=== PATIENT | female | born 1975 | race Caucasian/White ===

== ENCOUNTER 2017-01-27 09:16 | Emergency (ER) | payer OTHER ==
[2017-01-27] MEDS ORDERED: IV NORMAL SALINE 1,000ML 1,000 ML IV ONE ×4 (09:45→12:00)
[2017-01-27] MEDS ORDERED: LIDO:MAALOX 1:1 20 ML SINGLE DOSE PO ONE (09:45)
[2017-01-27] MEDS ORDERED: ONDANSETRON PF 4 MG/2 ML VIAL. IV ONE (09:45)
--- NOTE | 2017-01-27 10:03 | ED.ADGEN ---
Past History Past Medical History: No Pertinent History Past Surgical History: No Surgical History Alcohol Use: None Drug Use: Marijuana, Opiates Adult General Chief Complaint Chief Complaint chest pain HPI HPI Patient is a 41 year old female who presents with 2 days of R side chest pain, worsens with deep inspiration and movement. No increased cough from baseline, reports fever up to 102. Pt has current h/o IV drug use, recurrent staph infections. Pt attempt Keflex x 1 that was left over from a friend. Denies any falls or trauma, no current skin illness. Pt injects oxycontin, dilaudid and an oxy/morphine combination drug. Review of Systems Review of Systems Constitutional: per hpi Eyes: Denies change in visual acuity, redness, or eye pain [] HENT: Denies nasal congestion or sore throat [] Respiratory: Denies shortness of breath [] Cardiovascular: No additional information not addressed in HPI [] GI: Denies abdominal pain, nausea, vomiting, bloody stools or diarrhea [] : Denies dysuria or hematuria [] Musculoskeletal: Denies joint pain [] Integument: Denies rash or skin lesions [] Neurologic: Denies headache, focal weakness or sensory changes [] Current Medications Current Medications Current Medications Medications (Trade) Dose Ordered Sig/[place] Start Time Stop Time Status Last Admin Dose Admin Diphenhydramine HCl (Benadryl) 25 mg 1X ONCE 01/27/17 11:15 01/27/17 11:23 DC 01/27/17 11:12 25 MG Hydromorphone HCl (Dilaudid) 1 mg 1X ONCE 01/27/17 12:50 01/27/17 12:51 DC 01/27/17 12:50 1 MG Morphine Sulfate (Morphine 5mg Syringe) 5 mg 1X ONCE 01/27/17 10:30 01/27/17 10:31 DC 01/27/17 10:30 5 MG Multi-Ingredient Mouthwash/Gargle (Gi Cocktail) 20 ml 1X ONCE 01/27/17 09:45 01/27/17 09:45 DC Ondansetron HCl (Zofran) 4 mg 1X ONCE 01/27/17 09:45 01/27/17 09:45 DC Piperacillin Sod/ Tazobactam Sod 3.375 gm 3.375 gm STK-MED ONCE 01/27/17 11:04 01/27/17 11:05 DC Piperacillin Sod/ Tazobactam Sod 3.375 gm/Sodium Chloride 50 ml @ 100 mls/hr 1X ONCE 01/27/17 11:00 01/27/17 11:29 DC 01/27/17 11:00 100 MLS/HR Piperacillin Sod/ Tazobactam Sod 1 each 1 each PRN DAILY PRN 01/27/17 10:45 01/27/17 13:39 DC Potassium Chloride 40 meq 40 meq 1X ONCE 01/27/17 12:15 01/27/17 12:16 DC 01/27/17 11:56 40 MEQ Sodium Chloride (Iv Sodium Chloride 0.9% 1,000ml) 1,000 ml @ 1,000 mls/hr 1X ONCE 01/27/17 12:00 01/27/17 12:59 DC 01/27/17 12:00 1,000 MLS/HR Sodium Chloride (Iv Sodium Chloride 0.9% 50ml) 50 ml @ As Directed STK-MED ONCE 01/27/17 11:04 01/27/17 11:05 DC Vancomycin HCl 1 gm STK-MED ONCE 01/27/17 11:04 01/27/17 11:05 DC Vancomycin HCl (Vanco Per Pharmacy) 1 each PRN DAILY PRN 01/27/17 10:45 01/27/17 13:39 DC Vancomycin HCl/ Sodium Chloride (Iv Sodium Chloride 0.9% 250ml) 250 ml @ 250 mls/hr 1X ONCE 01/27/17 11:00 01/27/17 11:59 DC 01/27/17 11:00 250 MLS/HR Allergies Allergies Allergies Coded Allergies Type Severity Reaction Last Updated Verified paroxetine Allergy Intermediate 09/18/15 Yes prednisone Allergy Intermediate 09/18/15 No Physical Exam Physical Exam Constitutional: Well developed, thin, appears uncomfortable HENT: Normocephalic, atraumatic, bilateral external ears normal, oropharynx slightly dry, no oral exudates, nose normal. [] Eyes: PERRLA, EOMI, conjunctiva normal, no discharge. [] Neck: Normal range of motion, no tenderness, supple, no stridor. [] Cardiovascular:Heart rate tachycardic with regular rhythm, no appreciable murmur [] Lungs & Thorax: Bilateral breath sounds, RLL crackles, otherwise good air movement, diffuse R anterior chest wall ttp, no crepitus Abdomen: soft, no tenderness, no masses, no pulsatile masses. [] Skin: Warm, dry, multiple tracking geller on bilateral UEs Back: ttp in R upper back Extremities: No tenderness, no cyanosis, no clubbing, ROM intact, no edema. no erythema or fluctance, no increased warmth, distal pulses intact Neurologic: Alert and oriented X 3, normal motor function, normal sensory function, no focal deficits noted. [] Psychologic: Affect normal, judgement normal, mood normal. [] Current Patient Data Vital Signs Vital Signs Date Time Temp Pulse Resp B/P Pulse Ox O2 Delivery O2 Flow Rate FiO2 01/27/17 13:09 110 18 98/65 99 01/27/17 12:50 Room Air 01/27/17 09:16 98.0 Lab Results Laboratory Tests Test 01/27/17 10:38 01/27/17 10:45 01/27/17 10:54 White Blood Count 20.1x10^3/uL (4.0-11.0) H Red Blood Count 4.78x10^6/uL (3.50-5.40) Hemoglobin 12.3g/dL (12.0-15.5) Hematocrit 38.4% (36.0-47.0) Mean Corpuscular Volume 80fL (79-100) Mean Corpuscular Hemoglobin 26pg (25-35) Mean Corpuscular Hemoglobin Concent 32g/dL (31-37) Red Cell Distribution Width 15.9% (11.5-14.5) H Platelet Count 128x10^3/uL (140-400) L Neutrophils (%) (Auto) 95% (31-73) H Lymphocytes (%) (Auto) 1% (24-48) L Monocytes (%) (Auto) 3% (0-9) Eosinophils (%) (Auto) 1% (0-3) Basophils (%) (Auto) 0% (0-3) Neutrophils # (Auto) 19.0x10^3uL (1.8-7.7) H Lymphocytes # (Auto) 0.3x10^3/uL (1.0-4.8) L Monocytes # (Auto) 0.6x10^3/uL (0.0-1.1) Eosinophils # (Auto) 0.2x10^3/uL (0.0-0.7) Basophils # (Auto) 0.0x10^3/uL (0.0-0.2) Segmented Neutrophils % 69% (35-66) H Band Neutrophils % 26% (0-9) H Monocytes % 2% (0-10) Eosinophils % 2% (0-5) Toxic Granulation Slight Toxic Vacuolation Slight Platelet Estimate Decreased (ADEQUATE) Sodium Level 128mmol/L (136-145) L Potassium Level 3.0mmol/L (3.5-5.1) L Chloride Level 91mmol/L (98-107) L Carbon Dioxide Level 22mmol/L (21-32) Anion Gap 15 (6-14) H Blood Urea Nitrogen 19mg/dL (7-20) Creatinine 0.8mg/dL (0.6-1.0) Estimated GFR (Cockcroft-Gault) 79.9 BUN/Creatinine Ratio 24 (6-20) H Glucose Level 187mg/dL (70-99) H Lactic Acid Level 2.5mmol/L (0.4-2.0) H Calcium Level 8.0mg/dL (8.5-10.1) L Total Bilirubin 0.5mg/dL (0.2-1.0) Aspartate Amino Transferase (AST) 37U/L (15-37) Alanine Aminotransferase (ALT) 24U/L (14-59) Alkaline Phosphatase 140U/L (46-116) H Total Protein 7.4g/dL (6.4-8.2) Albumin 2.5g/dL (3.4-5.0) L Albumin/Globulin Ratio 0.5 (1.0-1.7) L Urine Collection Type Void Urine Color Son[place] Urine Clarity Cloudy Urine pH 6.0 Urine Specific [place] 1.015 Urine Protein >100 mg/dl (NEG-TRACE) Urine Glucose (UA) Negmg/dL (NEG) Urine Ketones (Stick) Negmg/dL (NEG) Urine Blood Small (NEG) Urine Nitrite Neg (NEG) Urine Bilirubin Neg (NEG) Urine Urobilinogen Dipstick 0.2mg/dL (0.2 mg/dL) Urine Leukocyte Esterase Neg (NEG) Urine RBC 3-5/HPF (0-2) Urine WBC 5-10/HPF (0-4) Urine Squamous Epithelial Cells Few/LPF Urine Transitional Epithelial Cells Occ/LPF Urine Bacteria Few/HPF (0-FEW) Urine Hyaline Casts Occ/HPF Urine Granular Casts Few/HPF Urine Mucus Slight/LPF Urine Opiates Screen Pos (NEG) Urine Methadone Screen Neg (NEG) Urine Barbiturates Neg (NEG) Urine Phencyclidine Screen Neg (NEG) Urine Amphetamine/Methamphetamine Pos (NEG) Urine Benzodiazepines Screen Pos (NEG) Urine Cocaine Screen Neg (NEG) Urine Cannabinoids Screen Pos (NEG) Urine Ethyl Alcohol Neg (NEG) POC Urine HCG, Qualitative hcg negative (Negative) EKG EKG 113 bpm, sinus tach, normal axis, normal intervals, ST elevation noted in lead V2 but no contagious leads with ST elevation, nonischemic appearing T waves , interpreted by me[] Radiology/Procedures Radiology/Procedures CXR: Chest, 2 views, 01/27/2017: History: Chest pressure and pain No previous chest radiographs are available at this time for comparison purposes. The heart size is normal. There are patchy bilateral pulmonary infiltrates. The largest opacity lies laterally in the right lower chest and is rounded in configuration. No pleural fluid is seen. The bony structures are unremarkable. IMPRESSION: Patchy bilateral pulmonary infiltrates suggesting pneumonia. The rounded configuration of some of these opacities raises the possibility of septic emboli or metastatic disease. Follow-up imaging is suggested. [] Course & Med Decision Making Course & Med Decision Making Pertinent Labs and Imaging studies reviewed. (See chart for details) IV ordered with IV fluids, morphine, lactate blood cultures, urine, uds, ucg, labs. Concerned for pneumonia vs. bacteremia vs. endocarditis with h/o IV drug use. Pt has bilateral pna, likely septic emboli. Pt given IV vanc and zosyn, 2nd line and 2nd L NS IV bolus ordered. Pt requesting pain meds, no improvement with morphine. Pt received IV dilaudid. Pressure in mid 80s but responded to second fluid bolus. A third was started. Pt accepted for transfer to [facility] by Dr. Larios. Sent by EMS Final Impression Final Impression Septic Emboli Pneumonia - bilateral SIRS Sepsis - possible IV drug abuse total critical care time > 40 minutes[] Problems: Dragon Disclaimer Dragon Disclaimer This electronic medical record was generated, in whole or in part, using a voice recognition dictation system. MARTHA POND MD Jan 27, 2017 10:03
--- NOTE | 2017-01-27 10:08 | EKG ---
[address] [address] Test Date: 2017-01-27 Test Time: 10:07:32 Pat Name: FRANCY BAIRES Department: Room: Gender: F Surgical [employer] Hand Frame: MARISSA : 1975 Requested By: MARTHA POND Order Number: [id number] Reading MD: Measurements Intervals [place] Rate: 113 P: 62 TX: 122 QRS: 41 QRSD: 70 T: 43 QT: 312 QTc: 427 Interpretive Statements SINUS TACHYCARDIA LEFT ATRIAL ABNORMALITY QRS(T) CONTOUR ABNORMALITY CONSISTENT WITH ANTEROSEPTAL INFARCT AGE UNDETERMINED ABNORMAL ECG RI6.01 Unconfirmed report No previous ECG available for comparison
--- NOTE | 2017-01-27 10:28 | RAD ---
Chest, 2 views, 01/27/2017: History: Chest pressure and pain No previous chest radiographs are available at this time for comparison purposes. The heart size is normal. There are patchy bilateral pulmonary infiltrates. The largest opacity lies laterally in the right lower chest and is rounded in configuration. No pleural fluid is seen. The bony structures are unremarkable. IMPRESSION: Patchy bilateral pulmonary infiltrates suggesting pneumonia. The rounded configuration of some of these opacities raises the possibility of septic emboli or metastatic disease. Follow-up imaging is suggested.
[2017-01-27] MEDS ORDERED: MORPHINE SULFATE 5 MG/ML SYRINGE. IV ONE (10:30)
[2017-01-27] MEDS ORDERED: PIP/TAZO PER PHARMACY MC PRN (10:45)
[2017-01-27] MEDS ORDERED: VANCOMYCIN PER PHARMACY MC PRN (10:45)
[2017-01-27 10:59] LABS: BASO % 0 % (0-3); EOS # 0.2 x10^3/uL (0.0-0.7); EOS % 1 % (0-3); HEMATOCRIT 38.4 % (36.0-47.0); HEMOGLOBIN 12.3 g/dL (12.0-15.5); LYMPH # 0.3 x10^3/uL (1.0-4.8); LYMPH % 1 % (24-48); MEAN CORPUSCULAR HEMOGLOBIN 26 pg (25-35); MEAN CORPUSCULAR HGB CONC 32 g/dL (31-37); MEAN CORPUSCULAR VOLUME 80 fL (79-100); MONO # 0.6 x10^3/uL (0.0-1.1); MONO % 3 % (0-9); NEUT % 95 % (31-73); PLATELET COUNT 128 x10^3/uL (140-400); RED BLOOD COUNT 4.78 x10^6/uL (3.50-5.40); RED CELL DISTRIBUTION WIDTH 15.9 % (11.5-14.5); WHITE BLOOD COUNT 20.1 x10^3/uL (4.0-11.0)
[2017-01-27] MEDS ORDERED: PIPERACILLIN/TAZOBACTAM 3.375 GM in IV NORMAL SALINE 50ML 50 ML IV ONE (11:00)
[2017-01-27] MEDS ORDERED: VANCOMYCIN 1 GM in IV NORMAL SALINE 250ML 250 ML IV ONE (11:00)
[2017-01-27] MEDS ORDERED: VANCOMYCIN 1 GM VIAL. ONE (11:04)
[2017-01-27] MEDS ORDERED: PIPERACILLIN/TAZOBACTAM 3.375 GM VIAL IV ONE (11:04)
[2017-01-27] MEDS ORDERED: IV NORMAL SALINE 250ML 250 ML ONE (11:04)
[2017-01-27] MEDS ORDERED: IV NORMAL SALINE 50ML 50 ML ONE (11:04)
[2017-01-27 11:11] LABS: ALBUMIN 2.5 g/dL (3.4-5.0); ALBUMIN/GLOBULIN RATIO 0.5 (1.0-1.7); CREATININE 0.8 mg/dL (0.6-1.0); GFR 79.9; TOTAL BILIRUBIN 0.5 mg/dL (0.2-1.0); TOTAL PROTEIN 7.4 g/dL (6.4-8.2)
[2017-01-27] MEDS ORDERED: HYDROMORPHONE PF 1 MG/ML DISP.SYRIN. IV ONE ×2 (11:15→12:50)
[2017-01-27] MEDS ORDERED: DIPHENHYDRAMINE 50 MG/ML VIAL IVP ONE (11:15)
[2017-01-27 11:22] LABS: BARBITURATES NEG (NEG); BENZODIAZEPINES POS (NEG); CANNABINOIDS POS (NEG); COCAINE NEG (NEG); METHADONE NEG (NEG); OPIATES POS (NEG); PHENCYCLIDINE NEG (NEG)
[2017-01-27 11:23] LABS: AMPHETAMINE/METHAMPHETAMINE POS (NEG)
[2017-01-27 11:38] LABS: CLARITY,URINE CLOUDY; COLOR,URINE AMBER
[2017-01-27 11:39] LABS: BACTERIA,URINE FEW /HPF (0-FEW); BILIRUBIN,URINE NEG (NEG); GLUCOSE,URINE NEG (NEG); GRANULAR CASTS,URINE FEW /HPF; HYALINE CASTS, URINE OCC /HPF; NITRITE,URINE NEG (NEG); UROBILINOGEN,URINE 0.2 mg/dL (0.2 mg/dL)
[2017-01-27 11:40] LABS: SQUAMOUS EPITHELIAL CELL,UR FEW /LPF
[2017-01-27] MEDS ORDERED: POTASSIUM CHLORIDE 20 MEQ TABLET.ER. PO ONE (12:15)
[2017-01-27 12:19] LABS: % BANDS 26 % (0-9); % EOS 2 % (0-5); % MONOS 2 % (0-10); % SEGS 69 % (35-66)
[2017-01-27 12:21] LABS: TOXIC GRANULATION SLIGHT; TOXIC VACUOLATION SLIGHT
[2017-01-27 12:23] LABS: PLT ESTIMATE DECREASED (ADEQUATE)
--- NOTE | 2017-01-27 13:04 | ACF ---
Admission Criteria Forms HYPONATREMIA; HYPERNATREMIA; HYPOKALEMIA; HYPERKALEMIA; HYPOCALCEMIA; HYPERCALCEMIA Clinical Indications for Inpatient Care (Place 'X' for any and all applicable criteria): Ongoing inpatient care may be indicated for ANY ONE of the following [G](1)(2)(3 )(5): [X]I. Hyponatremia with ANY ONE of the following: [X]a) Sodium less than 130 mEq/L (mmol/L) (new) (6)(22) [ ]b) Sodium less than 135 mEq/L (mmol/L) with ANY ONE of the following: [ ]i) Severe medical etiology requiring inpatient management (eg, heart failure, hypovolemia) [ ]ii) Altered mental status [ ]iii) Seizures [ ]II. Hypernatremia with ANY ONE of the following: [ ]a) Sodium greater than 155 mEq/L (mmol/L) [ ]b) Sodium greater than 150 mEq/L (mmol/L) with ANY ONE of the following: [ ] i) Altered mental status [ ]ii) Seizures [ ]iii) Severe medical etiology (eg, hypovolemia, diabetes insipidus) [ ]iv) Severe weakness [ ]v) Severe medical etiology (eg, hemolysis, infection, drug overdose) [X]III. Hypokalemia with ANY ONE of the following: [ ]a) Potassium less than 2.5 mEq/L (mmol/L) despite outpatient and emergency treatment [X]b) Potassium less than 3.0 mEq/L (mmol/L) with ANY ONE of the following: [ ]i) Weakness [ ]ii) Cardiac abnormality (eg, arrhythmia, conduction disturbance) [ ]iii) Cardiac ischemia [ ]iv) Ileus [ ]v) Ongoing medical cause requiring inpatient management. ( e.g., acute renal wasting, SIADH) [X]vi) Other severe symptoms [ ] IV. Hyperkalemia with ANY ONE of the following: [ ]a) Potassium greater than 6.5 mEq/L (mmol/L) [ ]b) Potassium greater than 5 mEq/L (mmol/L) with ANY ONE of the following: [ ]i) Severe ECG findings [H] [ ]ii) Acute worsening of renal failure (creatinine greater than 2.5 mg/dL (221 micromoles/L) or significant elevation for age and size) [ ] V. Hypocalcemia with ANY ONE of the following: [ ]a) Calcium less than 7 mg/dL (1.75 mmol/L) despite outpatient and emergency treatment(19) [ ]b) Calcium less than 8 mg/dL (2 mmol/L) with significant symptoms or findings; examples include: [ ]i) Cardiac abnormality (eg, arrhythmia or conduction disturbance) [ ]ii) Altered mental status [ ]iii) Seizures [ ]iv) Breathing difficulty [ ]v) Muscle spasms [ ]. Hypercalcemia with ANY ONE of the following: [ ]a) Calcium greater than 14 mg/dL (3.5 mmol/L) [ ]b) Calcium greater than 12 mg/dL (3 mmol/L) with ANY ONE of the following: [ ]i) Significant dehydration or hypovolemia as indicated by ANY ONE of the following(2): [ ]1. Clinically significant dehydration as indicated by ANY ONE of the following: [ ]A. Acute loss of weight from baseline (5% of body weight in adults, 9% in pediatric patients) [ ]B. Hemodynamic instability [ ]C. Acute renal failure [ ]D. Serum sodium greater than 150 mEq/L (mmol/L) [ ]2) Dehydration that is persistent indicated by ALL of the following: [ ]A. Oral rehydration therapy not tolerated or insufficient to adequately correct dehydration [ ]B. Appropriate intravenous treatment (eg, fluids ) does not readily correct dehydration ie, after 12 to 24 hours of treatment) [ ]ii) Significant symptoms or findings; examples include: [ ]1) Altered mental status [ ]2) Cardiac abnormality (eg, arrhythmia, conduction disturbance) [ ]3) Cardiac abnormality (eg, arrhythmia, conduction disturbance) The original [facility] content created by [employer] has been revised. The portions of the content which have been revised are identified through the use of italic text or in bold, and [facility] has neither reviewed nor approved the modified material. All other unmodified content is copyright [facility] [employer] Please see references footnoted in the original [facility] [employer] edition 2015 Admission Criteria Met?: Yes ELLIOT BLAS Jan 27, 2017 13:04
[2017-01-27 13:09] VITALS: BP 98/65
== END 2017-01-27 13:15 | disposition short-term general hospital (02) ==
LOC: ER 09:16
DX: I26.90 Septic pulmonary embolism without acute cor pulmonale (principal); R65.10 Systemic inflammatory response syndrome (SIRS) of non-infectious origin without acute organ dysfunction; F19.10 Other psychoactive substance abuse, uncomplicated; F12.10 Cannabis abuse, uncomplicated; F11.10 Opioid abuse, uncomplicated; Z88.8 Allergy status to other drugs, medicaments and biological substances
CPT/HCPCS: 36415; 71020; 80053; 80305; 81001; 83605; 84703; 85007; 85027; 87040; 87086; 87205; 93005; 96361; 96365; 96366; 96367; 96375; 96376; 99291; J1170; J1200; J2270; J2543; J3370; J7050; 81025; 87186; G0481; J7030